=== PATIENT | female | born 1985 | race Caucasian/White ===

== ENCOUNTER 2020-11-28 08:09 | Outpatient (CLI) | payer BC ==
--- NOTE | 2020-11-28 10:10 | ULT ---
PELVIC ULTRASOUND: HISTORY: Pelvic pain and pain in right groin region. FINDINGS: Real-time imaging of the pelvis was obtained transabdominally. The patient refused endovaginal exam. Uterus measures 7.7 cm in length. Endometrium is 5 mm. In the lower uterine segment are a few sma ll echogenic areas which are either within the cervix near the external cervical os or in the lower u terine segment that probably represent small calcifications. Possibly this is a small fibroid. It m easures less than a centimeter in size. The left ovary is poorly visualized. It is also difficult to visualized the right ovary, but no mass es or fluid collection is seen in this region. No free fluid. DOPLER EVALUATION WITH SPECTRAL ANALYSIS: Imaging of the right groin area showed no suspicious findings. IMPRESSION: A small area with some echogenic density in the lower uterine segment, possibly calcification related to small fibroid. These appeared to be slightly high in location to be related to nabothian cyst, a lthough this would be a possibility. This measures approximately a centimeter in size. No other sig nificant findings. POS: [facility]I
== END 2020-11-28 08:10 | disposition home or self-care (01) ==
LOC: BICULT 08:09
PROVIDERS: ATTEND Internal Medicine Gastroenterology
DX: K62.89 Other specified diseases of anus and rectum (principal); K92.1 Melena; K60.1 Chronic anal fissure; R10.31 Right lower quadrant pain
CPT/HCPCS: 76856; 93976

== ENCOUNTER 2023-12-25 09:19 | Outpatient (CLI) | payer OTHER | END 2023-12-25 09:20 | disposition home or self-care (01) | LOC: BICMAMMO 09:19 | PROVIDERS: ATTEND Physician Assistant | DX: Z12.31 Encounter for screening mammogram for malignant neoplasm of breast (principal) | CPT/HCPCS: 77063; 77067 ==